=== PATIENT | female | born 1950 | race African-American/Black ===

== ENCOUNTER → 2018-01-13 | Outpatient (CLI) | payer MEDICARE, BC | END | disposition home or self-care (01) | LOC: RAD 10:11 | PROVIDERS: ATTEND Internal Medicine Nephrology | DX: Z01.818 Encounter for other preprocedural examination (principal); C50.919 Malignant neoplasm of unspecified site of unspecified female breast | CPT/HCPCS: 71045 ==

== ENCOUNTER → 2018-01-20 | Outpatient (CLI) | payer MEDICARE, BC | END | disposition home or self-care (01) | LOC: US 08:34 | PROVIDERS: ATTEND Internal Medicine Nephrology | DX: I82.493 Acute embolism and thrombosis of other specified deep vein of lower extremity, bilateral (principal); M79.89 Other specified soft tissue disorders | CPT/HCPCS: 93970 ==

== ENCOUNTER → 2018-03-17 | Outpatient (CLI) | payer MEDICARE, BC | END | disposition home or self-care (01) | LOC: RAD 07:37 | PROVIDERS: ATTEND Internal Medicine Hematology & Oncology | DX: M85.88 Other specified disorders of bone density and structure, other site (principal); C50.411 Malignant neoplasm of upper-outer quadrant of right female breast; Z68.31 Body mass index [BMI] 31.0-31.9, adult | CPT/HCPCS: 77080 ==

== ENCOUNTER → 2018-04-18 | Outpatient (CLI) | payer MEDICARE, BC ==
[~2018-04-18] MED LIST: AMLO10TA80 PO; LETR2.5T6 PO; LISI10TA5 PO; LOSA50TA20 PO; SIMV20TA6 PO; TRIA1TAB92 PO
== END | disposition home or self-care (01) ==
LOC: RAD 09:58
PROVIDERS: ATTEND Internal Medicine Nephrology
DX: Z01.818 Encounter for other preprocedural examination (principal); K46.9 Unspecified abdominal hernia without obstruction or gangrene
CPT/HCPCS: 71045

== ENCOUNTER 2018-04-19 06:13 | Day surgery (SDC) | payer MEDICARE, BC ==
[~2018-04-19] VITALS: Ht 162.6 cm; Wt 74.4 kg
[2018-04-19] MEDS ORDERED: SODIUM CHLORIDE 0.9% 1,000 ML IV SCH (07:15)
[2018-04-19] MEDS ORDERED: BUPIVACAINE HCL 0.5% (5MG/ML) 50ML ONE (07:19)
[2018-04-19] MEDS ORDERED: FENTANYL CITRATE/PF 50MCG/ML 2ML VIAL ONE ×2 (08:23→09:09)
[2018-04-19] MEDS ORDERED: PROPOFOL 200MG/20ML VIAL IV ONE ×2 (08:24→08:35)
[2018-04-19] MEDS ORDERED: NEOSTIGMINE METHYLSULFATE 1MG/ML 10 ML VIAL ONE (08:24)
[2018-04-19] MEDS ORDERED: ROCURONIUM BROMIDE 10MG/ML VIAL 5ML IV ONE (08:24)
[2018-04-19] MEDS ORDERED: GLYCOPYRROLATE 0.2 MG/ML 2ML VIAL ONE ×2 (08:25→10:24)
[2018-04-19] MEDS ORDERED: MIDAZOLAM HCL 2 MG/2 ML VIAL ONE (08:25)
[2018-04-19] MEDS ORDERED: ONDANSETRON HCL 4MG/2ML INJ ONE (08:29)
[2018-04-19] MEDS ORDERED: DEXAMETHASONE 4MG/ML 1ML VIAL ONE (08:29)
[2018-04-19] MEDS ORDERED: LABETALOL HCL 5MG/ML VIAL 20ML IV ONE (09:10)
[2018-04-19] MEDS ORDERED: SKIN ADHESIVE 0.7 GM EA TOP ONE (09:39)
[2018-04-19] MEDS ORDERED: LABETALOL 5MG/ML SYR 20 MG/4 ML SYRINGE IV PRN (09:45)
[2018-04-19] MEDS ORDERED: ONDANSETRON HCL 4MG/2ML INJ IV PRN (09:45)
[2018-04-19] MEDS ORDERED: MEPERIDINE HCL/PF 25MG/ML CPJ IV PRN (09:45)
[2018-04-19] MEDS: HYDROMORPHONE HCL/PF 2MG/ML CPJ IV PRN ×3 (11:27→12:52)
[2018-04-19 12:52] VITALS: BP 99/53
== END 2018-04-19 14:00 | disposition home or self-care (01) ==
LOC: OR 06:13
PROVIDERS: ATTEND Surgery
DX: K42.9 Umbilical hernia without obstruction or gangrene (principal); E78.5 Hyperlipidemia, unspecified; I12.9 Hypertensive chronic kidney disease with stage 1 through stage 4 chronic kidney disease, or unspecified chronic kidney disease; N18.3 Chronic kidney disease, stage 3 (moderate); Z98.51 Tubal ligation status; Z90.710 Acquired absence of both cervix and uterus; Z80.3 Family history of malignant neoplasm of breast; Z90.11 Acquired absence of right breast and nipple; Z90.12 Acquired absence of left breast and nipple; Z79.899 Other long term (current) drug therapy; Z85.3 Personal history of malignant neoplasm of breast
CPT/HCPCS: 49652; C1781; G0168; J1100; J1170; J2250; J2405; J2710; J3010; J3490; J7030; J7120; J2704